=== PATIENT | male | born 1955 | race Caucasian/White ===

== ENCOUNTER 2016-11-16 13:47 | Emergency (ER) | payer OTHER, MEDICAID ==
[~2016-11-16] VITALS: Ht 160 cm; Wt 53.7 kg
[~2016-11-16 13:47] MED LIST: FOLI20CA PO; HYDR-3307 PO; IRON1TAB62 PO; MELO7.5T31; MELO7.5T31 PO; METH25VI22 PO; MULT1TAB60; [UNRECOGNIZED DRUG - OTHER] EACHEYE
[2016-11-16] MEDS ORDERED: SODIUM CHLORIDE FLUSH 10ML SYR IVF ONE (17:00)
[2016-11-16 17:53] LABS: HEMATOCRIT 41.2 % (39.2-51.8); HEMOGLOBIN 13.4 g/dL (13.7-18.0); WHITE BLOOD COUNT 7.8 x10^3/uL (3.4-10)
[2016-11-16 17:56] LABS: ASPARTATE AMINO TRANSFERASE 23 U/L (15-37); BLOOD UREA NITROGEN 15 mg/dL (7-18)
[2016-11-16 18:15] VITALS: BP 160/105
== END 2016-11-16 18:57 | disposition home or self-care (01) ==
LOC: ED 18:50
DX: S39.012A Strain of muscle, fascia and tendon of lower back, initial encounter (principal); S90.31XA Contusion of right foot, initial encounter; Y00.XXXA Assault by blunt object, initial encounter; Y93.89 Activity, other specified; Y92.098 Other place in other non-institutional residence as the place of occurrence of the external cause; Y99.8 Other external cause status
CPT/HCPCS: 36415; 72190; 74177; 80053; 81001; 83690; 85025; 99285